=== PATIENT | female | born 1990 | race Caucasian/White ===

== ENCOUNTER 2025-03-23 18:53 | Emergency (ER) | payer OTHER ==
[~2025-03-23] VITALS: Ht 157.5 cm; Wt 63.5 kg
[2025-03-23 19:30] VITALS: TEMP 97.8
[2025-03-23] MEDS ORDERED: IBUPROFEN 600 MG TABLET ONE (20:31)
[2025-03-23] MEDS ORDERED: ACETAMINOPHEN ES 500 MG TABLET ONE (20:31)
[2025-03-23] MEDS: IBUPROFEN 600 MG TABLET PO ONE (20:38)
[2025-03-23] MEDS: ACETAMINOPHEN ES 500 MG TABLET PO ONE (20:38)
[2025-03-23 21:00] VITALS: BP 127/87; O2SAT 100
[2025-03-23] MEDS ORDERED: ACET-2030 PO (21:14)
[2025-03-23] MEDS ORDERED: IBUP-1490 PO (21:14)
[2025-03-23] MEDS ORDERED: TRAZ-182 PO (21:35)
== END 2025-03-23 21:40 | disposition home or self-care (01) ==
LOC: ER 18:58
DX: M25.532 Pain in left wrist (principal); M25.562 Pain in left knee; M25.561 Pain in right knee; Z60.2 Problems related to living alone
CPT/HCPCS: 73130-TC